=== PATIENT | male | born 1970 | race Caucasian/White ===

== ENCOUNTER 2023-05-09 14:12 | Emergency (ER) | payer OTHER, SELFPAY ==
[2023-05-09 14:17] VITALS: BP 133/73
--- NOTE | 2023-05-09 14:37 | ED.GENMED ---
History of Present Illness
General
Chief Complaint: Back Pain
Source: patient
Exam Limitations: none
Time Seen by Provider: 05/09/23 14:21
Nursing documentation reviewed up to this point in time: agreed with
Travel History
Have you had any contact with someone who has COVID-19?: No
Do you have any symptoms of coronavirus? Fever > 100 degrees, chills, cough, shortness of breath, sore throat, loss of taste or smell, muscle aches, or headache?: No
History of Present Illness
History of Present Illness:
52-year-old male with past medical history of rosacea who presents to the emergency room for evaluation of back pain. Pain is in the low back he says radiates across. Patient reports that he was working in the garage bending over picking up scraps
from a project he had been working on. He says that he felt his back 'tighten up' and had significant pain. He says that he went down to his knees to see if it would resolve. After a few minutes it was still quite intense. His family got him a
heating pad and he laid on the floor for a bit; his gave him some Tylenol and Motrin as well as a dose of prednisone that was leftover from a prior prescription and symptoms slightly improved but he was still having trouble getting to his feet
due to tightness/spasm of the low back. Called EMS to bring her to the hospital for assessment. He says that he had a similar episode about 5 years ago when he was living in [facility] that he was diagnosed with back spasms and treated with
prednisone and muscle relaxers although he cannot recall the name of the muscle relaxer. He denies any shooting pains or radicular symptoms. Denies any weakness or numbness in the legs. Denies any saddle anesthesia. Did not have any incontinence
of bowel or bladder. He denies any other complaints today says he was in his normal state of health prior to onset. He is not on any blood thinners.
Review of Systems
Review of Systems
All Other Systems: ROS reviewed and negative except as documented in HPI and ROS
Constitutional: Denies fever
Respiratory: Denies trouble breathing
Cardiac: Denies chest pain
ABD/GI: Denies abdominal pain, nausea or vomiting
Musculoskeletal: Reports back pain; Denies neck pain
Neurological: Denies weakness or numbness
Phy Exam
Physical Exam
Physical Exam:
General: Awake, alert, laying flat in bed appears comfortable
Head: Normocephalic, atraumatic
Eyes: Conjunctiva normal, sclera anicteric
Throat: Airway intact, handling secretions
Neck: Trachea midline, supple without meningismus
Lungs: Breathing comfortably not in distress
Heart: Regular rate
Abd: Soft, non distended, nontender, no abdominal masses
Back: No midline tenderness thoracic or lumbar spine but he does have marked paraspinal tenderness in the lumbar region at the level of L2-L3; range of motion low back limited by pain; negative straight leg raise test bilaterally
Neuro: Cranial nerves grossly intact, speech fluid; motor and sensory function intact proximally and distally in the lower extremities bilaterally
Skin: no rash
Extremities: Warm well-perfused with no edema in the lower extremities
Scores
Heart Failure Risk
Heart Failure Risk Score: Not Applicable
Heart Score for Chest Pain Patients
STEMI patient?: Not applicable
Withdrawal Assessment of Alcohol
Withdrawal Assessment Completed?: Not applicable
Course
Orders/Labs/Results
Orders:
Orders
05/09/23 14:35
Diazepam [Valium] 5 mg PO NOW STA
Ketorolac [Toradol] 30 mg IM NOW STA
Lidocaine [Lidocaine 4% Patch] 1 patch TOPICAL ONCE ONE
05/09/23 16:40
HYDROmorphone [Dilaudid] 0.5 mg IV NOW STA
CR Lumbar Spine 2 Or 3 Views Urgent
Comment:
Reason For Exam: low back pain
Vital Signs
Initial and Last Documented VS:
Initial Vital Signs
Temp Pulse Resp BP Pulse Ox
36.6 C 82 16 133/73 99
05/09/23 14:17 05/09/23 14:17 05/09/23 14:17 05/09/23 14:17 05/09/23 14:17
Last Documented Vital Signs
Temp Pulse Resp BP Pulse Ox
36.6 C 85 16 116/66 95
05/09/23 14:17 05/09/23 16:54 05/09/23 14:17 05/09/23 16:54 05/09/23 16:54
MDM/Problems Addressed
Differential Diagnosis Includes:
Back spasm, myofascial strain, disc herniation, vertebral fracture less likely; no red flags on history or exam to suggest emergent pathology such as cauda equina syndrome or epidural abscess/hematoma in my judgment no further workup indicated for
these diagnoses
MDM/Problems Addressed:
52-year-old male presents for evaluation of pain/spasming in the low back after working in the garage in a bent position. Had similar episode from back spasms a few years ago. He did take Tylenol, Motrin, prednisone a few hours ago which improved
symptoms slightly but still having significant trouble moving. No red flag symptoms or exam findings. By history and exam this seems quite clearly muscular pain no indication for emergent back imaging at this point in time. Will treat
symptomatically and reassess.
is here at bedside she disclosed that in addition to Tylenol, Motrin, prednisone she also gave him a dose of Percocet that she had from old prescription.
Treated with Toradol, Valium, Lidoderm and patient had minimal improvement on attempts to get him up he still is not able to even stand up due to severe back pain. Given the significant symptoms we will check an x-ray although again they seem quite
clearly muscular--he describes severe spasming. Given that he has already received p.o. Percocet, Valium, NSAIDs and Tylenol without any improvement, will place an IV and provide parenteral pain control.
Reassessment patient pain greatly improved. Was able to sit up in a chair and walk around a bit. X-ray reviewed no fracture. There was noted some dilated bowel loops patient denies abdominal pain or bloating has been having normal bowel movements
if anything he says and has not been constipated no nausea or vomiting and abdomen soft nontender nondistended--nothing to suggest obstruction.
*Pulse Oximetry
Patient hypoxic: no
*Critical Care Note
Total Time (30-74mins, 75-104mins- exclusive of procedures): Not Applicable
Data Reviewed
Source: patient
Further Testing Considered But Not Given:
Considered x-ray of the lumbar spine, considered MRI of the lumbar spine
ED Attending Note
-
Portions of this chart may have been created with voice recognition software.� Occasional wrong word or��sound alike� substitutions may have occurred due to the inherent limitations of voice recognition software.
Discharge Plan
Departure
Patient with high blood pressure during this ER visit?: No
Discharge Problem:
Spasm of back muscles
Instructions: Low Back Pain ED
Activity Restrictions/Additional Instructions:
Thank you for visiting the Emergency Department at [facility].
1. Please schedule a follow up appointment as directed. Call first thing tomorrow morning to make an appointment.
2. If indicated, please take your medications as instructed and indicated on discharge paperwork.
3. If any of your symptoms do not improve, or persist, or become more severe within 6-12 hours, please return to the emergency department for further care.
4. Please return to the emergency department if you develop a headache, neck pain/stiffness, fever greater than 100.4F, chest pain, shortness of breath, persistent nausea, vomiting, slurred speech, difficulty walking, numbness/tingling, weakness,
signs of infection or any other symptoms that are worrisome to you.
Please call [phone] if you have any questions.
Interventions
Interventions:
*Risk Screen - Suicide Last Done: 05/09/23 14:17
*Neglect/Abuse Screening Last Done: 05/09/23 14:17
ED- Fall Risk Assessment Last Done: 05/09/23 14:17
*ED COVID-19 Vaccine History Last Done: 05/09/23 14:17
ED-Musculoskeletal Assessment Last Done: 05/09/23 14:17
[2023-05-09] MEDS: LIDOCAINE 4% PATCH 1 PATCH TOPICAL (14:45)
[2023-05-09] MEDS: VALIUM 5 MG PO (14:45)
[2023-05-09] MEDS: TORADOL 30 MG IM (14:45)
[2023-05-09] MEDS: DILAUDID 0.5 MG IV (16:49)
[2023-05-09 16:54] VITALS: BP 116/66
[2023-05-09 18:36] VITALS: BP 111/72
== END 2023-05-09 17:00 | disposition home or self-care (01) ==
LOC: EMR 14:12
PROVIDERS: EMERGENCY PHYSICIAN Emergency Medicine; FAMILY PHYSICIAN Nurse Practitioner Family
DX: M62.830 Muscle spasm of back (principal)
CPT/HCPCS: 99284; 96374; 96372; 72100